=== PATIENT | female | born 1955 | race Caucasian/White ===

== ENCOUNTER 2017-12-05 22:58 | Observation (INO) ==
[2017-12-05] MEDS ORDERED: 0.9 % Sodium Chloride 1,000 ML IVC ONE (23:19)
[2017-12-05] MEDS ORDERED: Aspirin 81 MG TAB.CHEW PO ONE (23:19)
--- NOTE | 2017-12-05 23:38 | Emergency Department Note ---
Disposition Clinical Impression: Chest pain Qualifiers: Chest pain type: unspecified Qualified Code(s): R07.9 - Chest pain, unspecified Disposition: Admitted As Inpatient Condition: Good Forms: ED Satisfaction Letter Time of Disposition: 00:10 Chest Pain HPI - General Chief Complaint: ED Chest Pain Stated Complaint: chest pain Time Seen by Provider: 12/05/17 23:01 Source: patient, EMS Mode of arrival: ambulatory Limitations: no limitations Vital Signs Reviewed: Yes Nursing Notes Reviewed: Yes - History of Present Illness HPI Narrative: 62-year-old female presents to the emergency department complaining of chest pain. She says the chest pain, came on all of a sudden last about 10 minutes he was in the center part of her chest and radiated to both arms. She had no nausea or vomiting. She has had history in the past has had multiple catheterizations but no stents are placed. The last time she was catheterized was about 3-4 years ago which was clean. Patient has not had a fever she has no cough. She denies any long car rides, past blood clots, any leg swelling or pain, recent surgeries or cancer or hormone use. Patient does have history of hypertension and hypercholesterolemia. Patient otherwise has no complaints at this time including no headaches, blurry vision, neck pain, back pain, fevers, nausea, vomiting, shortness of breath, abdominal pain, changes in bowel movement , pain with urination, pain or tingling going down the arms or legs or any generalized weakness. Severity scale (1-10): 0 - Related Data Allergies Allergy/AdvReac Type Severity Reaction Status Date / Time sertraline [From Zoloft] Allergy See Verified 05/02/17 11:57 Comments sumatriptan [From Imitrex] Allergy See Verified 05/02/17 11:57 Comments All systems ED: reviewed and negative except as stated. Review of Systems: As Per HPI Chest Pain PMH - Past Medical History Medical history: Reports: COPD, hypertension, myocardial infarction Psychiatric history: Reports: depression - Social History Smoking Status: Former smoker Alcohol use: Reports: none Drug use: Reports: none Physical Exam - General Limitations: no limitations General appearance: alert, in no apparent distress - Head Head exam: atraumatic, normocephalic, normal inspection - Eye Eye exam: Present: normal appearance, PERRL, EOMI - ENT ENT exam: normal exam, normal oropharynx, mucous membranes moist - Neck Neck exam: Present: normal inspection, full ROM, trachea midline - Chest Chest inspection: Present: normal inspection, symmetric chest wall rise. Absent : tenderness - Respiratory Respiratory exam: Present: normal lung sounds bilaterally - Cardiovascular Cardiovascular exam: Present: regular rate, normal rhythm, normal heart sounds - Abdominal Exam Abdominal exam: Present: soft, Non-Tender, normal bowel sounds. Absent: tenderness, distention, guarding, rebound, rigidity - Extremities Exam Extremities exam: Present: normal inspection, full ROM. Absent: tenderness, pedal edema - Back Exam Back exam: Present: normal inspection, full ROM. Absent: tenderness, CVA tenderness (R), CVA tenderness (L) - Neurological Exam Neurological exam: Present: alert, oriented X3 - Skin Skin exam: Present: warm, dry, intact, normal color Course Course Narrative: We will get basic chest pain workup including CBC, BMP, troponin as well as EKG and chest x-ray. Patient was hypotensive so we will get a lactate as well. We will give patient IV fluids. Patient not having chest pain at this time so will not give him nitroglycerin. We will give her full dose aspirin. Patient disposition most likely his admission for further evaluation. Vital Signs Temperature 98.0 F 12/05/17 23:01 Pulse Rate 72 12/05/17 23:01 Respiratory Rate 18 12/05/17 23:01 Blood Pressure 97/60 12/05/17 23:01 O2 Sat by Pulse Oximetry 96 12/05/17 23:01 Temperature 98.0 F 12/05/17 23:01 Pulse Rate 66 12/05/17 23:33 Respiratory Rate 18 12/05/17 23:33 Blood Pressure 91/61 12/05/17 23:33 O2 Sat by Pulse Oximetry 96 12/05/17 23:33 Oxygen Delivery Oxygen Delivery Room Air Chest Pain - [facility] Narrative Medical decision making narrative: 62-year-old female presents to the emergency department for chest pain. Chest pain is gone at this time we will not give nitroglycerin. Patient also was hypotensive recently she was 80/40 when she got here since getting a liter fluid she is only increased to 95/65. All labs were normal negative troponin chest x-ray was within normal limits EKG had no acute changes. Patient does have an heart score of 4 the patient should be observed overnight. Spoke with the hospitalist Dr. March who agreed to admit the patient to their service. Maria De Jesus molina is okay with this plan. Patient was admitted in stable condition. Chest X-Ray 12/05/17 23:02 IMPRESSION: Negative portable study. D/ / Darlin Paul Cha, MD / Darlin Paul Cha, MD Interpreting Provider: Darlin Paul Cha, MD - Medical Records Medical records reviewed: Yes I reviewed the patient's medical records. - Lab Data Lab results reviewed: Yes I reviewed the patient's lab results. Result diagrams: 12/05/17 23:18 12/05/17 23:18 Lab Results 12/05/17 12/05/17 12/05/17 Range/Units 23:18 23:18 23:18 WBC 11.4 H (4.3-11.1) K/mcL RBC 4.10 (3.82-4.97) M/mcL Hgb 11.5 (11.5-15.4) g/dL Hct 35.6 (35.3-44.9) % MCV 86.8 (83.0-100.0) fL MCH 28.0 (28.0-33.3) pg MCHC 32.3 (31.6-35.5) g/dL RDW 13.9 (11.5-14.5) % Plt Count 239 (140-400) K/mcL MPV 10.7 (9.4-12.4) fL Immature Gran % 0.7 (0-4) % Seg Neutrophils % 48.6 % Lymphocytes % 36.3 % Monocytes % 9.1 % Eosinophils % 4.9 % Basophils % 0.4 % Neutrophils # 5.6 (1.6-8.9) K/mcL Lymphocytes # 4.2 (0.6-4.6) K/mcL Monocytes # 1.0 (0.0-1.3) K/mcL Eosinophils # 0.6 (0.0-0.6) K/mcL Basophils # 0.1 (0.0-0.2) K/mcL PT 11.0 (9.4-12.1) Seconds INR 1.0 APTT 28.6 (26.0-36.0) Seconds Sodium 134 L (136-145) mEq/L Potassium 3.5 (3.5-5.1) mEq/L Chloride 99 (98-107) mEq/L Carbon Dioxide 30 H (23-29) mEq/L BUN 33 H (8-23) mg/dL Creatinine 1.07 (0.60-1.20) mg/dL Est GFR ( Amer) > 60 (> 60) Est GFR (Non-Af Amer) 52 L (> 60) BUN/Creatinine Ratio 31 H (6-26) Glucose 126 H (70-105) mg/dL Calculated Osmolality 287 (280-300) Calcium 9.0 (8.6-10.3) mg/dL Troponin I < 0.03 (< 0.04) ng/mL - Radiology Data Radiology results reviewed: Yes I reviewed the patient's radiology results. - EKG Data EKG attestation: Yes I reviewed and interpreted this EKG. EKG results narrative: EKG done at 2315 review myself and attending shows sinus rhythm at a rate of 66 , TN interval 180, QRS 86, QTC 454 with a normal axis. There is no acute ST changes no acute T-wave changes no other signs of ischemia. No heart block, heart strain, hypertrophy. No WPW/Brugada/HOCM. EKG is unchanged when compared with old one done 05/02/17 Heart Score - Score History: Moderately Suspicious EKG: Normal Age: 45-65 Risk Factors: Equal/Greater than 3 risk factor or history of atherosclerotic disease Troponin: Less than normal limit HEART Score Total: 4
[2017-12-05 23:50] LABS: Activated Partial Thrombo Time 28.6 Seconds (26.0-36.0)
[2017-12-05 23:54] LABS: Basophils # 0.1 K/mcL (0.0-0.2); Basophils % 0.4 %; Eosinophils # 0.6 K/mcL (0.0-0.6); Eosinophils % 4.9 %; Hematocrit 35.6 % (35.3-44.9); Hemoglobin 11.5 g/dL (11.5-15.4); Immature Granulocytes % 0.7 % (0-4); Lymphocytes # 4.2 K/mcL (0.6-4.6); Lymphocytes % 36.3 %; Mean Corpuscular HGB Conc 32.3 g/dL (31.6-35.5); Mean Corpuscular Volume 86.8 fL (83.0-100.0); Mean Platelet Volume 10.7 fL (9.4-12.4); Monocytes % 9.1 %; Neutrophils # 5.6 K/mcL (1.6-8.9); Platelet Count 239 K/mcL (140-400); Red Cell Distribution Width 13.9 % (11.5-14.5); Segmented Neutrophils % 48.6 %
[2017-12-05 23:57] LABS: BUN/Creatinine Ratio 31 (6-26); Blood Urea Nitrogen 33 mg/dL (8-23); Carbon Dioxide 30 mEq/L (23-29); Chloride 99 mEq/L (98-107); Glucose 126 mg/dL (70-105); Osmolality,Calculated 287 (280-300); Potassium 3.5 mEq/L (3.5-5.1); Sodium 134 mEq/L (136-145); eGFR For Non-African Americans 52 (> 60)
[2017-12-05 23:58] LABS: Troponin I < 0.03 ng/mL (< 0.04)
--- NOTE | 2017-12-06 00:10 | Emergency Department Note ---
Disposition Clinical Impression: Unstable angina, Hypotension Disposition: Admitted As Inpatient Condition: Good Forms: ED Satisfaction Letter General Adult HPI - General Chief complaint: ED Chest Pain Stated complaint: chest pain Time Seen by Provider: 12/05/17 23:01 Source: patient, EMS Mode of arrival: ambulatory Limitations: no limitations - History of Present Illness Pain Scale: 0 - Related Data Allergies Allergy/AdvReac Type Severity Reaction Status Date / Time sertraline [From Zoloft] Allergy See Verified 05/02/17 11:57 Comments sumatriptan [From Imitrex] Allergy See Verified 05/02/17 11:57 Comments Past Medical History - Past Medical History Medical history: Reports: COPD, hypertension, myocardial infarction Psychiatric history: Reports: depression - Social History Smoking Status: Former smoker Smokeless Tobacco Status: No Alcohol use: Reports: none Drug use: Reports: none Physical Exam - General Limitations: no limitations General appearance: alert, in no apparent distress Course Vital Signs Temperature 98.0 F 12/05/17 23:01 Pulse Rate 72 12/05/17 23:01 Respiratory Rate 18 12/05/17 23:01 Blood Pressure 97/60 12/05/17 23:01 O2 Sat by Pulse Oximetry 96 12/05/17 23:01 Temperature 98.0 F 12/05/17 23:01 Pulse Rate 66 12/05/17 23:33 Respiratory Rate 18 12/05/17 23:33 Blood Pressure 91/61 12/05/17 23:33 O2 Sat by Pulse Oximetry 96 12/05/17 23:33 Oxygen Delivery Oxygen Delivery Room Air Medical Decision Making - Lab Data Result diagrams: 12/05/17 23:18 12/05/17 23:18 Lab Results 12/05/17 12/05/17 12/05/17 Range/Units 23:18 23:18 23:18 WBC 11.4 H (4.3-11.1) K/mcL RBC 4.10 (3.82-4.97) M/mcL Hgb 11.5 (11.5-15.4) g/dL Hct 35.6 (35.3-44.9) % MCV 86.8 (83.0-100.0) fL MCH 28.0 (28.0-33.3) pg MCHC 32.3 (31.6-35.5) g/dL RDW 13.9 (11.5-14.5) % Plt Count 239 (140-400) K/mcL MPV 10.7 (9.4-12.4) fL Immature Gran % 0.7 (0-4) % Seg Neutrophils % 48.6 % Lymphocytes % 36.3 % Monocytes % 9.1 % Eosinophils % 4.9 % Basophils % 0.4 % Neutrophils # 5.6 (1.6-8.9) K/mcL Lymphocytes # 4.2 (0.6-4.6) K/mcL Monocytes # 1.0 (0.0-1.3) K/mcL Eosinophils # 0.6 (0.0-0.6) K/mcL Basophils # 0.1 (0.0-0.2) K/mcL PT 11.0 (9.4-12.1) Seconds INR 1.0 APTT 28.6 (26.0-36.0) Seconds Sodium 134 L (136-145) mEq/L Potassium 3.5 (3.5-5.1) mEq/L Chloride 99 (98-107) mEq/L Carbon Dioxide 30 H (23-29) mEq/L BUN 33 H (8-23) mg/dL Creatinine 1.07 (0.60-1.20) mg/dL Est GFR ( Amer) > 60 (> 60) Est GFR (Non-Af Amer) 52 L (> 60) BUN/Creatinine Ratio 31 H (6-26) Glucose 126 H (70-105) mg/dL Calculated Osmolality 287 (280-300) Calcium 9.0 (8.6-10.3) mg/dL Troponin I < 0.03 (< 0.04) ng/mL Attestation Statement - Attestation Attestation: I examined this patient and my medical decision-making was reviewed with the Resident Physician. I agree with the documented findings, disposition and treatment plan as described except to the extent set forth below. 62-year-old female in presented to the emergency room for chest pain. Happened just prior to arrival. Lasted 10-15 minutes. Sort of a sharp pain. History of the same in the past and which she was diagnosed with a Prinzmetal's angina. She states she had one of these issues during a heart stress test. She has no history of stents. Said previous heart catheterizations with stents. She does have risk factors. Heart score of 4. We will keep the patient based on her blood pressure being low in the 90s. We gave her liter of fluid with no significant change in her systolic blood pressure. Patient is agreeable to stay for observation based on her blood pressure. She states she normally runs 180s systolic. She looks well this time. She is in no distress. She is chest pain-free.
[2017-12-06] MEDS ORDERED: Acetaminophen 325 MG TABLET PO ONE (00:35)
[2017-12-06] MEDS ORDERED: Naloxone 0.4 MG/ML INJ IVP PRN (00:49)
[2017-12-06] MEDS ORDERED: Nitroglycerin 0.4 MG TAB.SUBL SL PRN (00:53)
[2017-12-06] MEDS ORDERED: 0.9 % Sodium Chloride 1,000 ML IVC SCH (01:00)
--- NOTE | 2017-12-06 02:07 | Internal Med History&Physical ---
Date of Encounter: 12/07/17 Time of Encounter: 02:07 Internal Medicine - H&P: HPI Chief complaint: Chest Pain History of present illness: Ms. Lisa is a 62 year old female with a past medical history of coronary artery disease, myocardial infarction 2 who presents to the emergency room due to sudden onset chest pain. The episode occurred last evening while the patient going to bed. Chest pain described as substernal, burning in quality, radiating to both arms. No aggravating or alleviating factors. Patient reports nausea prior to onset of symptoms and had taken Zofran about 10-15 minutes before symptoms began. No diaphoresis or shortness of breath. Symptoms lasted 10 minutes and resolved on its own. Patient reports a similar episode 2 weeks prior. She does state that she has been having cough with greenish sputum and congestion for the past week and has been taking Augmentin for presumed bronchitis. Patient was noted to be hypotensive with a blood pressure of 80/40. She received 1 L of fluids with a rise in her blood pressure to 95/65. Patient states that she has which she refers to as "heart spasms" which was conveyed to her by her previous [employer] architect. When I asked her if meant coronary artery vessel spasm, she stated the terms sounded unfamiliar to her. Patient continues to smoke 1 cigarette per day and has a significant smoking history in the past of a pack and a half per day for many years. Laboratory findings were remarkable for a mild leukocytosis. Negative troponins. EKG was relatively unremarkable. Chest x-ray was performed which was also unremarkable. Past Med Surg Social Fam HX - Past Medical History Medical history: COPD, hypertension, myocardial infarction, TIA Psychiatric history: anxiety, depression - Past Surgical History Additional surgical history: Partial hysterectomy - Social History Smoking Status: Current every day smoker Smokeless Tobacco Status: No Alcohol use: none Drug use: none - Family History Mother Brother Hx Family Cardiac Disorders: Yes (CHF) Internal Medicine - H&P: Meds Acetaminophen [Tylenol] 325 mg PO Q4HR PRN 12/06/17 [History] Albuterol Sulfate [Proair Hfa] 1 puff IH Q6H PRN 12/06/17 [History] Aspirin [Adult Aspirin Regimen] 81 mg PO DAILY 12/06/17 [History] Atorvastatin [Lipitor] 10 mg PO HS 12/06/17 [History] Budesonide [Rhinocort Allergy] 1 spr NS BID 12/06/17 [History] Calcium Carbonate [Tums] 2 each PO Q4H PRN 12/06/17 [History] Carvedilol [Coreg] 25 mg PO BID 12/06/17 [History] Cetirizine HCl [Zyrtec] 10 mg PO DAILY 12/06/17 [History] Docusate [Colace] 100 mg PO BID 12/06/17 [History] Gabapentin [Neurontin] 600 mg PO QID 12/06/17 [History] Guaifenesin [Mucinex] 600 mg PO BID 12/06/17 [History] Hydrocodone/Acetaminophen [Hydrocodon-Acetaminophn 10-325] 1 tab PO QID PRN [History] Ipratropium/Albuterol Neb [Duoneb] 3 ml IH Q6HR PRN 12/06/17 [History] Lisinopril/Hydrochlorothiazide [Zestoretic 20-25 mg Tablet] 1 each PO DAILY [History] Melatonin [Melatin] 3 mg PO HS 12/06/17 [History] Mupirocin Calcium [Bactroban Nasal] 1 each IN TID PRN 12/06/17 [History] Nystatin POWDER [Nystop] 1 each TD DAILY PRN 12/06/17 [History] Ondansetron HCl 4 mg PO QID PRN 12/06/17 [History] Paroxetine HCl [Paxil] 40 mg PO DAILY 12/06/17 [History] Pectin [Throat Drops] 2.8 mg MM Q2-4H PRN 12/06/17 [History] Polyethylene Glycol 3350 [MiraLAX] 1 each PO DAILY PRN 12/06/17 [History] Ranitidine HCl [Zantac 75] 75 mg PO HS 12/06/17 [History] Saline Nasal [place] [[place] Nasal [place]] 1 each IN PRN PRN 12/06/17 [History] Tizanidine HCl [Zanaflex] 4 mg PO HS 12/06/17 [History] Varenicline Tartrate [Chantix] 1 mg PO BID 12/06/17 [History] clonazePAM [Clonazepam] 0.5 mg PO TID 12/06/17 [History] Amoxicillin/Clavulanate [Augmentin] 875 mg PO BIDWM tablet 12/07/17 [Rx] predniSONE [PredniSONE] 40 mg PO DAILY tablet 12/07/17 [Rx] 3 Allergy/AdvReac Type Severity Reaction Status Date / Time sertraline [From Zoloft] Allergy See Verified 05/02/17 11:57 Comments sumatriptan [From Imitrex] Allergy See Verified 05/02/17 11:57 Comments All Systems PM: A 10-system review of systems was performed and is negative for pertinent findings except as documented above in the HPI. - Constitutional Constitutional: no chills, no fever(s), no night sweats - EENT Eyes: no change in vision, no discharge, no pain, no photophobia Ears: no ear discharge, no ear pain, no tinnitus Nose, mouth and throat: no dysphagia, no nasal discharge, no neck pain, no sore throat - Cardiovascular Cardiovascular ROS IM: no chest pain, no diaphoresis, no dyspnea, no lightheadedness, no palpitations, no syncope - Respiratory Respiratory: no cough, no dyspnea, no wheezing, no excessive phlegm production - Gastrointestinal Gastrointestinal: no abdominal pain, no diarrhea, no hematemesis, no hematochezia, no melena, no nausea, no vomiting - Genitourinary Genitourinary: no change in urinary stream, no dysuria, no flank pain, no hematuria - Musculoskeletal Musculoskeletal ROS IM: no numbness, no tingling - Integumentary Integumentary IM: no rash, no unusual bruising - Neurological Neurological ROS: no confusion, no convulsions, no focal weakness, no numbness, no tingling, no tremor(s) - Hematologic/Lymphatic Hematologic/Lymphatic: no easy bruising - Constitutional Vitals: Temp Pulse Resp BP Pulse Ox 97.8 F 72 16 99/66 95 12/06/17 01:15 12/06/17 01:15 12/06/17 01:15 12/06/17 01:15 12/06/17 01:15 Exam: General: Alert and oriented 3; lying in bed no acute distress Skin:Normal color, no rash, no lesions. HEENT:EOM, pupils equal, round and reactive. Cardiovascular:Normal S1 & S2, no rubs, murmurs or gallops. No JVD. Pulse regular. Lungs:Normal breath sounds, no wheezes or crackles. Abdomen:Soft, non-tender, no rigidity. Extremities:No deformity, no edema or tenderness, no joint swelling or clubbing. Neurological:Normal cognition and motor skills. Pulses:Carotid and radial pulses normal +2. Rest of the physical exam is non contributory Internal Med - H&P Results - Labs CBC & Chem 7: 12/06/17 05:24 12/06/17 05:24 - Assessment and plan (1) Chest pain Status: Acute Assessment and plan: Atypical chest pain in the setting of previous history of TX with negative troponins and normal EKG. Low suspicion for acute coronary syndrome however given patient's prior history we will need to rule out ACS. Unclear if this may be a presentation of Prinzmetal angina given patient's report of history of "heart spasm". She also reports 1 week history of acute bronchitis currently being treated on Augmentin . Patient received loading dose of aspirin. Patient asymptomatic currently. Blood pressure stable. Continue telemetry. Trend troponins We will reassess need for sublingual nitroglycerin if chest pain recurs. No beta blockers for now in the setting of hypotension. Nuclear stress test in the morning. Consider cardiology consult. Qualifiers: Chest pain type: unspecified Qualified Code(s): R07.9 - Chest pain, unspecified (2) Hypotension Status: Resolved Assessment and plan: Fluid responsive hypotension of unclear etiology. Possibly secondary to mild sepsis in the setting of the upper respiratory tract infection versus cardiogenic etiology. We will continue maintenance fluids for now. Hold Carvidilol. Monitor blood pressure Qualifiers: Hypotension type: unspecified hypotension type Qualified Code(s): I95.9 - Hypotension, unspecified (3) Acute bronchitis Status: Acute Assessment and plan: Patient reports cough productive of greenish sputum for the past week. She is currently receiving Augmentin for presumed acute bronchitis. We will continue current medications. Qualifiers: Bronchitis organism: unspecified organism Qualified Code(s): J20.9 - Acute bronchitis, unspecified - Time Spent With Patient Total time spent is greater than 50% in coordination of care (as documented) at patient's floor/unit and/or counseling patient:
[2017-12-06] MEDS ORDERED: Acetaminophen 325 MG TABLET PO PRN (04:15)
[2017-12-06] MEDS ORDERED: Ondansetron Oral Soln 2 MG/2.5 ML ORAL.SYG PO PRN (04:34)
[2017-12-06] MEDS ORDERED: Regadenoson 0.4 MG/5 ML SYRINGE IVP ONE (06:07)
[2017-12-06 06:21] LABS: Basophils % 0.3 %; Eosinophils # 0.5 K/mcL (0.0-0.6); Eosinophils % 5.2 %; Hematocrit 36.4 % (35.3-44.9); Hemoglobin 11.4 g/dL (11.5-15.4); Immature Granulocytes % 0.6 % (0-4); Lymphocytes # 3.9 K/mcL (0.6-4.6); Mean Corpuscular HGB Conc 31.3 g/dL (31.6-35.5); Mean Corpuscular Hemoglobin 27.7 pg (28.0-33.3); Mean Corpuscular Volume 88.6 fL (83.0-100.0); Mean Platelet Volume 10.8 fL (9.4-12.4); Monocytes % 10.6 %; Neutrophils # 3.8 K/mcL (1.6-8.9); Platelet Count 223 K/mcL (140-400); Red Blood Count 4.11 M/mcL (3.82-4.97); Red Cell Distribution Width 13.8 % (11.5-14.5); Segmented Neutrophils % 41.3 %
[2017-12-06 06:43] LABS: Alanine Aminotransferase 10 Units/L (7-52); Albumin 3.1 g/dL (3.5-5.7); Albumin/Globulin Ratio 1.4 (1.1-2.2); Alkaline Phosphatase 66 Units/L (34-104); Aspartate Amino Transferase 13 Units/L (13-39); BUN/Creatinine Ratio 36 (6-26); Bilirubin,Total 0.4 mg/dL (0.3-1.0); Blood Urea Nitrogen 31 mg/dL (8-23); Calcium 8.4 mg/dL (8.6-10.3); Carbon Dioxide 29 mEq/L (23-29); Chloride 104 mEq/L (98-107); Chol/HDL Ratio 6.6 (0-4.9); Cholesterol 185 mg/dL (< 200); Globulin 2.2 g/dL (2.4-3.5); Glucose 99 mg/dL (70-105); HDL Cholesterol 28 mg/dL (40-59); LDL Cholesterol,Calculated 99 mg/dL (0-99); Magnesium 2.1 mg/dL (1.6-2.6); Osmolality,Calculated 287 (280-300); Potassium 3.9 mEq/L (3.5-5.1); Sodium 135 mEq/L (136-145); Total Protein 5.3 g/dL (6.4-8.9); Triglycerides 290 mg/dL (< 150); eGFR For Non-African Americans > 60 (> 60)
[2017-12-06] MEDS ORDERED: 0.9 % Sodium Chloride 500 ML IVC PRN (07:45)
[2017-12-06] MEDS: Ipratropium/Albuterol Neb 3 ML IH SCH ×3 (10:55→22:18)
[2017-12-06] MEDS: Gabapentin 300 MG CAPSULE PO SCH ×4 (11:06→19:50)
[2017-12-06] MEDS: Loratadine 10 MG TABLET PO SCH (12:07)
[2017-12-06] MEDS: Aspirin Enteric Coated 81 MG Tablet PO SCH (12:07)
[2017-12-06] MEDS: Fluticasone Propionate Nasal 50 MCG/SPRAY BOTTLE NS SCH (12:08)
[2017-12-06] MEDS: *HR* HYDROcodone/Acet 10/325 mg TABLET PO PRN ×2 (14:10→19:50)
[2017-12-06] MEDS ORDERED: clonazePAM 0.5 MG TABLET PO PRN (14:34)
[2017-12-06] MEDS ORDERED: Albuterol 2.5 MG/3 ML NEBULIZER IH PRN (14:49)
--- NOTE | 2017-12-06 15:00 | Event Note ---
Date of Encounter: 12/06/17 Time of Encounter: 14:30 H&P reviewed. 62-year-old female with history of CAD and prior CT, COPD, is admitted for sudden onset of chest pain. She was also hypotensive on presentation, she is otherwise usually on 3 antihypertensive medications at home. Diffuse wheezing on exam on both lung mera. Medications were held and she was given IV fluid. Underwent stress test this AM which was negative. Has been treated with PO Augmentin as an outpatient which will be continued but will also add on IV solumedrol with an aim to switch to PO PRednisone tomorrow and discharge if BP remains stable.
[2017-12-06] MEDS: MethylPREDNISolone 40 MG/ML VIAL IVP SCH (17:45)
[2017-12-07] MEDS: Ipratropium/Albuterol Neb 3 ML IH SCH ×2 (03:49→11:16)
[2017-12-07] MEDS: MethylPREDNISolone 40 MG/ML VIAL IVP SCH (06:39)
[2017-12-07] MEDS ORDERED: predniSONE 20 MG TABLET PO SCH (09:00)
[2017-12-07] MEDS: Fluticasone Propionate Nasal 50 MCG/SPRAY BOTTLE NS SCH (10:56)
[2017-12-07] MEDS: *HR* HYDROcodone/Acet 10/325 mg TABLET PO PRN (11:02)
[2017-12-07] MEDS: Aspirin Enteric Coated 81 MG Tablet PO SCH (11:02)
[2017-12-07] MEDS: Loratadine 10 MG TABLET PO SCH (11:02)
[2017-12-07] MEDS: Gabapentin 300 MG CAPSULE PO SCH (11:02)
--- NOTE | 2017-12-07 11:06 | Physician Discharge Referral ---
ExtendedCare Referral Info Transfer To: Signature Provider in Charge after Transfer: PCP Institutional Level of Care: Skilled - Diagnosis (1) Acute bronchitis Priority: Primary Status: Acute (2) Chest pain Priority: Primary Status: Acute (3) Hypotension Priority: Primary Status: Resolved Prognosis: Fair Aware of Diagnosis: Patient Aware of Prognosis: Patient - Transfer Medications Home Medications: Acetaminophen [Tylenol] 325 mg PO Q4HR PRN 12/06/17 [History] Albuterol Sulfate [Proair Hfa] 1 puff IH Q6H PRN 12/06/17 [History] Aspirin [Adult Aspirin Regimen] 81 mg PO DAILY 12/06/17 [History] Atorvastatin [Lipitor] 10 mg PO HS 12/06/17 [History] Budesonide [Rhinocort Allergy] 1 spr NS BID 12/06/17 [History] Calcium Carbonate [Tums] 2 each PO Q4H PRN 12/06/17 [History] Carvedilol [Coreg] 25 mg PO BID 12/06/17 [History] Cetirizine HCl [Zyrtec] 10 mg PO DAILY 12/06/17 [History] Docusate [Colace] 100 mg PO BID 12/06/17 [History] Gabapentin [Neurontin] 600 mg PO QID 12/06/17 [History] Guaifenesin [Mucinex] 600 mg PO BID 12/06/17 [History] Hydrocodone/Acetaminophen [Hydrocodon-Acetaminophn 10-325] 1 tab PO QID PRN [History] Ipratropium/Albuterol Neb [Duoneb] 3 ml IH Q6HR PRN 12/06/17 [History] Lisinopril/Hydrochlorothiazide [Zestoretic 20-25 mg Tablet] 1 each PO DAILY [History] Melatonin [Melatin] 3 mg PO HS 12/06/17 [History] Mupirocin Calcium [Bactroban Nasal] 1 each IN TID PRN 12/06/17 [History] Nystatin POWDER [Nystop] 1 each TD DAILY PRN 12/06/17 [History] Ondansetron HCl 4 mg PO QID PRN 12/06/17 [History] Paroxetine HCl [Paxil] 40 mg PO DAILY 12/06/17 [History] Pectin [Throat Drops] 2.8 mg MM Q2-4H PRN 12/06/17 [History] Polyethylene Glycol 3350 [MiraLAX] 1 each PO DAILY PRN 12/06/17 [History] Ranitidine HCl [Zantac 75] 75 mg PO HS 12/06/17 [History] Saline Nasal [place] [[place] Nasal [place]] 1 each IN PRN PRN 12/06/17 [History] Tizanidine HCl [Zanaflex] 4 mg PO HS 12/06/17 [History] Varenicline Tartrate [Chantix] 1 mg PO BID 12/06/17 [History] clonazePAM [Clonazepam] 0.5 mg PO TID 12/06/17 [History] predniSONE [PredniSONE] 40 mg PO DAILY tablet 12/07/17 [Rx] Allergies/Adverse Reactions: 3 Allergy/AdvReac Type Severity Reaction Status Date / Time sertraline [From Zoloft] Allergy See Verified 05/02/17 11:57 Comments sumatriptan [From Imitrex] Allergy See Verified 05/02/17 11:57 Comments - Respiratory Orders Smoking Cessation: Smoking cessation has been advised. For more information, call the [place] Tobacco Quit Line at 4-705-NZGV-NOW. - Advance Directives Code Status: Full Code - Mobility Orders Ambulate CERTIFICATION: I certify that the transfer of the above named patient to an Extended Care Facility is necessary for the continuing treatment of the diagnosis listed. The above information is true and accurate reflection of patient's current condition. Confidential - Redisclosure prohibited without a patient's written consent.
--- NOTE | 2017-12-07 11:11 | Discharge Summary ---
- NOTES TO OUTPATIENT PROVIDER Notes to Outpatient Provider: Follow up with PCP per protocol of SNF. Admitted to observation for low blood pressure and bronchitis, asssociated with chest pain.Work up negative, blood pressure improved promptly with fluids , discharged back to SNF on home meds, with augmentin and prednisone for bronchitis Orders not resulted at time of discharge: Pending orders 12/06/17 06:00 ECG 12 lead ECG [ECG] AM 0600 12/06/17 06:33 NM jessica perf SPECT multi [NM] Routine Date of Encounter: 12/07/17 Time of Encounter: 11:09 - Discharge Diagnosis (1) Acute bronchitis Priority: Primary Status: Acute Qualifiers: Bronchitis organism: unspecified organism Qualified Code(s): J20.9 - Acute bronchitis, unspecified (2) Chest pain Priority: Primary Status: Acute Qualifiers: Chest pain type: unspecified Qualified Code(s): R07.9 - Chest pain, unspecified (3) Hypotension Priority: Primary Status: Resolved Qualifiers: Hypotension type: unspecified hypotension type Qualified Code(s): I95.9 - Hypotension, unspecified Hospital course: Ms. Lisa is a 62 year old female with history of CAD and prior OR is admitted for sudden onset of chest pain, as well as low blood pressure. Patient presented to [facility] ER with complains of sudden onset chest pain, which resolved spontaneously prior to arrival, associated with nausea, no vomiting, no diaphoresis or shortness of breath. Symptoms lasted 10 minutes and resolved on its own. Patient reports a similar episode 2 weeks prior. She does state that she has been having cough with greenish sputum and congestion for the past week and has been taking Augmentin for presumed bronchitis. Patient continues to smoke 1 cigarette per day and has a significant smoking history in the past of a pack and a half per day for many years. Laboratory findings were remarkable for a mild leukocytosis. Negative troponins. EKG was relatively unremarkable. Chest x-ray was performed which was also unremarkable. EKG, troponin, Stress test was done and is negative. She was also hypotensive, she is usually on 3 anti-HTN meds at home. Med on hold, given IVF, and started to improve from the afternoon. Was being treated for bronchitis so is being continued on Augmentin. She was seen and evaluated this a.m, blood pressure is now high, off fluids and medications have beenr esumed Patient reports she is asymptomatic and will like to return to SNF She is on multiple controlled substances, we have not changed the doses of same , continue per primary provider at [facility] Patient is hemodynamically and clinically stable to be discharged to SNF Tobacco cessation counselling done Discharge discussed with: patient, nurse, case management Time spent discussing smoking cessation with patient: 3 to 10 minutes - Time Spent with Patient Total time spent providing and/or coordinating discharge services: Less than 30 minutes - Discharge Medications Home Medications: Acetaminophen [Tylenol] 325 mg PO Q4HR PRN 12/06/17 [History] Albuterol Sulfate [Proair Hfa] 1 puff IH Q6H PRN 12/06/17 [History] Aspirin [Adult Aspirin Regimen] 81 mg PO DAILY 12/06/17 [History] Atorvastatin [Lipitor] 10 mg PO HS 12/06/17 [History] Budesonide [Rhinocort Allergy] 1 spr NS BID 12/06/17 [History] Calcium Carbonate [Tums] 2 each PO Q4H PRN 12/06/17 [History] Carvedilol [Coreg] 25 mg PO BID 12/06/17 [History] Cetirizine HCl [Zyrtec] 10 mg PO DAILY 12/06/17 [History] Docusate [Colace] 100 mg PO BID 12/06/17 [History] Gabapentin [Neurontin] 600 mg PO QID 12/06/17 [History] Guaifenesin [Mucinex] 600 mg PO BID 12/06/17 [History] Hydrocodone/Acetaminophen [Hydrocodon-Acetaminophn 10-325] 1 tab PO QID PRN [History] Ipratropium/Albuterol Neb [Duoneb] 3 ml IH Q6HR PRN 12/06/17 [History] Lisinopril/Hydrochlorothiazide [Zestoretic 20-25 mg Tablet] 1 each PO DAILY [History] Melatonin [Melatin] 3 mg PO HS 12/06/17 [History] Mupirocin Calcium [Bactroban Nasal] 1 each IN TID PRN 12/06/17 [History] Nystatin POWDER [Nystop] 1 each TD DAILY PRN 12/06/17 [History] Ondansetron HCl 4 mg PO QID PRN 12/06/17 [History] Paroxetine HCl [Paxil] 40 mg PO DAILY 12/06/17 [History] Pectin [Throat Drops] 2.8 mg MM Q2-4H PRN 12/06/17 [History] Polyethylene Glycol 3350 [MiraLAX] 1 each PO DAILY PRN 12/06/17 [History] Ranitidine HCl [Zantac 75] 75 mg PO HS 12/06/17 [History] Saline Nasal [place] [[place] Nasal [place]] 1 each IN PRN PRN 12/06/17 [History] Tizanidine HCl [Zanaflex] 4 mg PO HS 12/06/17 [History] Varenicline Tartrate [Chantix] 1 mg PO BID 12/06/17 [History] clonazePAM [Clonazepam] 0.5 mg PO TID 12/06/17 [History] Amoxicillin/Clavulanate [Augmentin] 875 mg PO BIDWM tablet 12/07/17 [Rx] predniSONE [PredniSONE] 40 mg PO DAILY tablet 12/07/17 [Rx] Allergies/Adverse Reactions: 3 Allergy/AdvReac Type Severity Reaction Status Date / Time sertraline [From Zoloft] Allergy See Verified 05/02/17 11:57 Comments sumatriptan [From Imitrex] Allergy See Verified 05/02/17 11:57 Comments Date of admission: 12/06/17 00:31 Primary care physician: PCP NONE Consults: 12/06/17 01:11 Consult to [facility] [CONS] Routine Reason for SW Consult: Patient from [facility] for rehab; slated to leave Sunday to return home per patient. Discharging clinician: Irving Boyer Anticipated date of discharge: 12/07/17 - Constitutional Vitals: Temp Pulse Resp BP Pulse Ox 97.8 F 88 18 151/84 93 12/07/17 07:24 12/07/17 07:24 12/07/17 07:24 12/07/17 07:24 12/07/17 07:24 General appearance: Present: A&O X 3, pleasant Exam: See exam - Head Head exam: Present: atraumatic, normocephalic - Eye Eye exam: Present: PERRL, conjuntiva pink, sclera anicteric Pupils: Present: PERRL - Neck Neck exam general surgery: Present: supple, trachea midline. Absent: lymphadenopathy - Respiratory Respiratory exam: Present: CTAB. Absent: accessory muscle use, rales, rhonchi, wheezes - Cardiovascular Cardiovascular exam: Present: RRR, +S1, +S2. Absent: diastolic murmur, gallop, rubs, systolic murmur - GI/Abdominal GI/Abdominal exam: Present: normal bowel sounds, soft, no peritoneal signs. Absent: distended, tenderness - Extremities Exam Extremities exam: Present: warm, radial pulses palpable and symmetrical. Absent : calf tenderness, cyanotic, pedal edema - Neurological Exam Neurological exam: Present: CN II-XII intact, oriented X3, no focal deficits. Absent: pronater drift, facial droop, speech deficit - Skin Skin exam: Present: dry, intact - Patient Status Disposition: Transfer SNF Condition: Good Functional capacity at discharge: independent ambulation Overall status at discharge: patient is progressing back to baseline - Discharge Instructions Follow Up With: NONE,PCP [Primary Care Provider] - - Diet and Activity Activity: resume usual activities as tolerated Diet: low fat, low cholesterol, low salt diet
[2017-12-07 11:25] VITALS: BP 161/100
--- NOTE | 2017-12-09 20:54 | Electrocardiograph Report ---
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
== END 2017-12-07 13:15 ==
LOC: EMEROOARM 22:58 → 2ANU 22:58 → SUATTDRO 12-06 00:31 → 2ANU 12-06 00:49
PROVIDERS: ADMIT Internal Medicine; ATTEND Internal Medicine

== ENCOUNTER 2021-04-21 23:33 | Inpatient (IN) ==
[2021-04-21] MEDS ORDERED: Isovue-370 500 ML BOTTLE IVP ONE (23:41)
[2021-04-22 00:27] LABS: Basophils % 0.2 %; Eosinophils # 0.1 K/mcL (0.0-0.6); Eosinophils % 0.3 %; Hematocrit 38.3 % (35.3-44.9); Immature Granulocytes % 0.5 % (0-4); Lymphocytes # 1.7 K/mcL (0.6-4.6); Lymphocytes % 8.4 %; Mean Corpuscular HGB Conc 31.3 g/dL (31.6-35.5); Mean Corpuscular Hemoglobin 26.4 pg (28.0-33.3); Mean Corpuscular Volume 84.2 fL (83.0-100.0); Mean Platelet Volume 11.2 fL (9.4-12.4); Monocytes # 1.9 K/mcL (0.0-1.3); Monocytes % 9.2 %; Neutrophils # 16.8 K/mcL (1.6-8.9); Nucleated Red Blood Cells 0.1 /100 WBC (0); Platelet Count 372 K/mcL (140-400); Red Blood Count 4.55 M/mcL (3.82-4.97); Red Cell Distribution Width 15.6 % (11.5-14.5); Segmented Neutrophils % 81.4 %; White Blood Count 20.6 K/mcL (4.3-11.1)
[2021-04-22 00:48] LABS: BUN/Creatinine Ratio 26 (6-26); Blood Urea Nitrogen 19 mg/dL (8-23); Calcium 9.3 mg/dL (8.6-10.3); Carbon Dioxide 31 mEq/L (23-29); Chloride 97 mEq/L (98-107); Glucose 141 mg/dL (70-105); Osmolality,Calculated 287 (280-300); Potassium 3.5 mEq/L (3.5-5.1); Sodium 136 mEq/L (136-145); eGFR For African Americans > 60 (> 60); eGFR For Non-African Americans > 60 (> 60)
[2021-04-22 00:52] LABS: Troponin I 0.04 ng/mL (< 0.04)
[2021-04-22] MEDS ORDERED: Azithromycin 500 MG in 0.9 % Sodium Chloride 250 ML IVPB ONE (01:28)
[2021-04-22] MEDS ORDERED: cefTRIAXone 2,000 MG in Water for inj. (sterile) 20 ML IVP ONE (01:28)
[2021-04-22] MEDS ORDERED: Naloxone 0.4 MG/ML INJ IVP PRN (03:05)
[2021-04-22] MEDS ORDERED: Melatonin 3 MG TABLET PO PRN (03:05)
[2021-04-22 03:30] LABS: Influenza A PCR Negative (Negative); Influenza B PCR Negative (Negative); Resp. Syncytial Virus PCR Negative (Negative)
[2021-04-22 03:50] LABS: SARS-CoV-2 by PCR (In House) Negative (Negative)
[2021-04-22] MEDS ORDERED: Dextrose Gel 15 GM/37.5 ML TUBE PO PRN ×2 (04:01)
[2021-04-22] MEDS ORDERED: *HR* Dextrose 50 % in Water (Syg) 50 ML SYRINGE IVP PRN (04:01)
[2021-04-22] MEDS ORDERED: D5% in Water 1,000 ML IVC PRN (04:01)
[2021-04-22] MEDS: Nicotine 21 MG PATCH.TD24 TD SCH (05:35)
[2021-04-22] MEDS: MethylPREDNISolone 40 MG/ML VIAL IVP SCH ×3 (05:35→17:55)
[2021-04-22] MEDS: *HR* Heparin 5,000 UNIT/ML VIAL SQ SCH ×2 (05:36→17:55)
[2021-04-22 06:07] LABS: Hematocrit 38.4 % (35.3-44.9); Hemoglobin 11.9 g/dL (11.5-15.4); Mean Corpuscular Hemoglobin 26.2 pg (28.0-33.3); Mean Corpuscular Volume 84.6 fL (83.0-100.0); Mean Platelet Volume 10.9 fL (9.4-12.4); Platelet Count 384 K/mcL (140-400); Red Blood Count 4.54 M/mcL (3.82-4.97); Red Cell Distribution Width 15.8 % (11.5-14.5); White Blood Count 21.9 K/mcL (4.3-11.1)
[2021-04-22 06:25] LABS: BUN/Creatinine Ratio 23 (6-26); Blood Urea Nitrogen 17 mg/dL (8-23); Calcium 9.6 mg/dL (8.6-10.3); Carbon Dioxide 32 mEq/L (23-29); Chloride 97 mEq/L (98-107); Glucose 146 mg/dL (70-105); Osmolality,Calculated 284 (280-300); Phosphorous 3.7 mg/dL (2.7-4.5); Potassium 3.9 mEq/L (3.5-5.1); Sodium 135 mEq/L (136-145); eGFR For African Americans > 60 (> 60); eGFR For Non-African Americans > 60 (> 60)
[2021-04-22] MEDS: *HR* LORazepam 0.5 MG TABLET PO PRN (06:29)
[2021-04-22 06:35] LABS: Troponin I 0.05 ng/mL (< 0.04)
[2021-04-22] MEDS: Insulin LISPRO 300 UNITS/3 ML VIAL SUBQ SCH ×4 (07:05→20:08)
[2021-04-22] MEDS: Budesonide/Formoterol 160/4.5 1 PUFF INH IH SCH ×2 (08:36→19:44)
[2021-04-22] MEDS ORDERED: FLUoxetine 20 MG CAPSULE PO SCH (09:00)
[2021-04-22 09:03] LABS: ABG Base Excess 4 mEq/L (-2 to 3); ABG HCO3 32 mEq/L (21-27); ABG Oxygen Saturation 98 % (95-98); ABG PCO2 62 mmHg (35-45); ABG PH 7.32 pH Units (7.32-7.45); ABG PO2 120 mmHg (85-104); ABG TCO2 34 mEq/L (20-26); Blood Gas Modality BiLevel
[2021-04-22] MEDS: carvediloL 25 MG TABLET PO SCH ×2 (09:48→17:56)
[2021-04-22] MEDS: cloNIDine HCL 0.1 MG TABLET PO SCH ×2 (09:48→19:57)
[2021-04-22] MEDS ORDERED: Ipratropium/Albuterol Neb 3 ML IH SCH (10:00)
[2021-04-22] MEDS ORDERED: Ondansetron ODT 4 MG TAB.RAPDIS SL PRN (13:53)
[2021-04-22] MEDS: Ipratropium/Albuterol Neb 3 ML IH SCH ×2 (16:12→19:44)
[2021-04-22] MEDS: Gabapentin 300 MG CAPSULE PO SCH (19:56)
[2021-04-22] MEDS: Carbidopa/Levodopa 25/100 TABLET PO SCH (19:57)
[2021-04-22] MEDS: Gabapentin 100 MG CAPSULE PO SCH (19:57)
[2021-04-23] MEDS: Ipratropium/Albuterol Neb 3 ML IH SCH ×6 (00:04→20:13)
[2021-04-23 02:41] LABS: Basophils % 0.2 %; Hematocrit 37.3 % (35.3-44.9); Hemoglobin 11.3 g/dL (11.5-15.4); Immature Granulocytes % 0.9 % (0-4); Lymphocytes # 1.4 K/mcL (0.6-4.6); Lymphocytes % 8.2 %; Mean Corpuscular HGB Conc 30.3 g/dL (31.6-35.5); Mean Corpuscular Hemoglobin 25.8 pg (28.0-33.3); Mean Corpuscular Volume 85.2 fL (83.0-100.0); Monocytes # 0.5 K/mcL (0.0-1.3); Monocytes % 2.8 %; Neutrophils # 14.5 K/mcL (1.6-8.9); Platelet Count 368 K/mcL (140-400); Red Blood Count 4.38 M/mcL (3.82-4.97); Red Cell Distribution Width 15.6 % (11.5-14.5); Segmented Neutrophils % 87.9 %; White Blood Count 16.5 K/mcL (4.3-11.1)
[2021-04-23 02:49] LABS: BUN/Creatinine Ratio 33 (6-26); Blood Urea Nitrogen 23 mg/dL (8-23); Calcium 9.4 mg/dL (8.6-10.3); Carbon Dioxide 32 mEq/L (23-29); Chloride 99 mEq/L (98-107); Glucose 139 mg/dL (70-105); Osmolality,Calculated 290 (280-300); Potassium 4.1 mEq/L (3.5-5.1); Sodium 137 mEq/L (136-145); eGFR For African Americans > 60 (> 60); eGFR For Non-African Americans > 60 (> 60)
[2021-04-23] MEDS: MethylPREDNISolone 40 MG/ML VIAL IVP SCH ×3 (04:11→17:34)
[2021-04-23] MEDS: Nicotine 21 MG PATCH.TD24 TD SCH (04:17)
[2021-04-23] MEDS: *HR* Heparin 5,000 UNIT/ML VIAL SQ SCH ×2 (06:00→17:34)
[2021-04-23] MEDS: Budesonide/Formoterol 160/4.5 1 PUFF INH IH SCH ×2 (07:40→20:13)
[2021-04-23] MEDS: Insulin LISPRO 300 UNITS/3 ML VIAL SUBQ SCH ×4 (07:49→21:33)
[2021-04-23] MEDS: PARoxetine 20 MG TABLET PO SCH (08:16)
[2021-04-23] MEDS: Lisinopril-HCTZ 20-12.5mg TABLET PO SCH (08:16)
[2021-04-23] MEDS: carvediloL 25 MG TABLET PO SCH ×2 (08:17→17:33)
[2021-04-23] MEDS: Gabapentin 300 MG CAPSULE PO SCH ×2 (08:17→20:23)
[2021-04-23] MEDS: cloNIDine HCL 0.1 MG TABLET PO SCH ×2 (08:17→20:23)
[2021-04-23] MEDS: Carbidopa/Levodopa 25/100 TABLET PO SCH ×3 (08:17→21:44)
[2021-04-23] MEDS: Gabapentin 100 MG CAPSULE PO SCH ×2 (08:17→20:23)
[2021-04-23] MEDS: Aspirin Enteric Coated 81 MG Tablet PO SCH (08:17)
[2021-04-23] MEDS: Furosemide 20 MG TABLET PO SCH (08:17)
[2021-04-23] MEDS: Azithromycin 500 MG in 0.9 % Sodium Chloride 250 ML IVPB SCH (17:34)
[2021-04-23] MEDS: cefTRIAXone 1,000 MG in 0.9 % Sodium Chloride Mini Bag 100 ML IVPB SCH (17:34)
[2021-04-23] MEDS: *HR* HYDROcodone/Acet 5/325 mg TABLET PO PRN (20:22)
[2021-04-24] MEDS: Ipratropium/Albuterol Neb 3 ML IH SCH ×7 (00:08→23:26)
[2021-04-24] MEDS: MethylPREDNISolone 40 MG/ML VIAL IVP SCH ×3 (03:15→22:15)
[2021-04-24 06:55] LABS: Basophils # 0.1 K/mcL (0.0-0.2); Basophils % 0.3 %; Hematocrit 40.1 % (35.3-44.9); Hemoglobin 12.2 g/dL (11.5-15.4); Immature Granulocytes % 1.5 % (0-4); Lymphocytes # 1.2 K/mcL (0.6-4.6); Lymphocytes % 5.8 %; Mean Corpuscular HGB Conc 30.4 g/dL (31.6-35.5); Mean Corpuscular Hemoglobin 25.5 pg (28.0-33.3); Mean Corpuscular Volume 83.9 fL (83.0-100.0); Mean Platelet Volume 11.1 fL (9.4-12.4); Monocytes # 0.7 K/mcL (0.0-1.3); Monocytes % 3.1 %; Neutrophils # 18.9 K/mcL (1.6-8.9); Nucleated Red Blood Cells 0.1 /100 WBC (0); Platelet Count 424 K/mcL (140-400); Red Blood Count 4.78 M/mcL (3.82-4.97); Red Cell Distribution Width 15.4 % (11.5-14.5); Segmented Neutrophils % 89.3 %; White Blood Count 21.1 K/mcL (4.3-11.1)
[2021-04-24] MEDS: *HR* Heparin 5,000 UNIT/ML VIAL SQ SCH ×2 (07:08→16:24)
[2021-04-24] MEDS: Nicotine 21 MG PATCH.TD24 TD SCH (07:08)
[2021-04-24 07:13] LABS: BUN/Creatinine Ratio 35 (6-26); Blood Urea Nitrogen 29 mg/dL (8-23); Calcium 9.4 mg/dL (8.6-10.3); Carbon Dioxide 35 mEq/L (23-29); Chloride 97 mEq/L (98-107); Glucose 157 mg/dL (70-105); Osmolality,Calculated 293 (280-300); Sodium 137 mEq/L (136-145); eGFR For African Americans > 60 (> 60); eGFR For Non-African Americans > 60 (> 60)
[2021-04-24] MEDS: Budesonide/Formoterol 160/4.5 1 PUFF INH IH SCH ×2 (07:52→19:49)
[2021-04-24] MEDS: carvediloL 25 MG TABLET PO SCH ×2 (08:34→16:23)
[2021-04-24] MEDS: Lisinopril-HCTZ 20-12.5mg TABLET PO SCH (08:34)
[2021-04-24] MEDS: Gabapentin 300 MG CAPSULE PO SCH ×2 (08:34→22:17)
[2021-04-24] MEDS: Gabapentin 100 MG CAPSULE PO SCH ×2 (08:34→22:17)
[2021-04-24] MEDS: cloNIDine HCL 0.1 MG TABLET PO SCH ×2 (08:35→22:18)
[2021-04-24] MEDS: Furosemide 20 MG TABLET PO SCH (08:35)
[2021-04-24] MEDS: PARoxetine 20 MG TABLET PO SCH (08:35)
[2021-04-24] MEDS: Aspirin Enteric Coated 81 MG Tablet PO SCH (08:35)
[2021-04-24] MEDS: Carbidopa/Levodopa 25/100 TABLET PO SCH ×3 (08:35→21:45)
[2021-04-24] MEDS: *HR* HYDROcodone/Acet 5/325 mg TABLET PO PRN ×2 (08:45→16:36)
[2021-04-24] MEDS: Insulin LISPRO 300 UNITS/3 ML VIAL SUBQ SCH ×4 (08:48→22:47)
[2021-04-24] MEDS: Azithromycin 500 MG in 0.9 % Sodium Chloride 250 ML IVPB SCH (16:24)
[2021-04-24] MEDS: cefTRIAXone 1,000 MG in 0.9 % Sodium Chloride Mini Bag 100 ML IVPB SCH (16:25)
[2021-04-25] MEDS: *HR* HYDROcodone/Acet 5/325 mg TABLET PO PRN ×2 (00:47→10:46)
[2021-04-25] MEDS: Ipratropium/Albuterol Neb 3 ML IH SCH ×4 (03:57→16:06)
[2021-04-25] MEDS: cloNIDine HCL 0.1 MG TABLET PO SCH ×2 (04:04→07:49)
[2021-04-25] MEDS: *HR* Heparin 5,000 UNIT/ML VIAL SQ SCH (04:58)
[2021-04-25 05:45] LABS: Basophils # 0.1 K/mcL (0.0-0.2); Basophils % 0.5 %; Hematocrit 38.7 % (35.3-44.9); Hemoglobin 12.1 g/dL (11.5-15.4); Immature Granulocytes % 4.7 % (0-4); Lymphocytes # 1.8 K/mcL (0.6-4.6); Lymphocytes % 10.1 %; Mean Corpuscular HGB Conc 31.3 g/dL (31.6-35.5); Mean Corpuscular Hemoglobin 25.9 pg (28.0-33.3); Mean Corpuscular Volume 82.7 fL (83.0-100.0); Monocytes # 0.9 K/mcL (0.0-1.3); Monocytes % 4.7 %; Neutrophils # 14.4 K/mcL (1.6-8.9); Platelet Count 421 K/mcL (140-400); Red Blood Count 4.68 M/mcL (3.82-4.97); Red Cell Distribution Width 15.4 % (11.5-14.5)
[2021-04-25 06:02] LABS: BUN/Creatinine Ratio 35 (6-26); Blood Urea Nitrogen 30 mg/dL (8-23); Calcium 9.1 mg/dL (8.6-10.3); Carbon Dioxide 36 mEq/L (23-29); Chloride 95 mEq/L (98-107); Glucose 197 mg/dL (70-105); Osmolality,Calculated 294 (280-300); Potassium 3.6 mEq/L (3.5-5.1); Sodium 136 mEq/L (136-145); eGFR For African Americans > 60 (> 60); eGFR For Non-African Americans > 60 (> 60)
[2021-04-25] MEDS: Budesonide/Formoterol 160/4.5 1 PUFF INH IH SCH (07:38)
[2021-04-25] MEDS: Nicotine 21 MG PATCH.TD24 TD SCH (07:48)
[2021-04-25] MEDS: Aspirin Enteric Coated 81 MG Tablet PO SCH (07:49)
[2021-04-25] MEDS: Carbidopa/Levodopa 25/100 TABLET PO SCH ×2 (07:49→14:30)
[2021-04-25] MEDS: PARoxetine 20 MG TABLET PO SCH (07:49)
[2021-04-25] MEDS: carvediloL 25 MG TABLET PO SCH (07:49)
[2021-04-25] MEDS: Lisinopril-HCTZ 20-12.5mg TABLET PO SCH (07:50)
[2021-04-25] MEDS: Furosemide 20 MG TABLET PO SCH (07:50)
[2021-04-25] MEDS: Gabapentin 300 MG CAPSULE PO SCH (07:50)
[2021-04-25] MEDS: Gabapentin 100 MG CAPSULE PO SCH (07:50)
[2021-04-25] MEDS: Insulin LISPRO 300 UNITS/3 ML VIAL SUBQ SCH ×2 (07:50→12:00)
[2021-04-25] MEDS ORDERED: predniSONE 20 MG TABLET PO SCH (09:00)
[2021-04-25 11:49] VITALS: BP 159/90; PULSE 72; TEMP 97.3; O2SAT 93
[2021-04-25] MEDS: *HR* LORazepam 0.5 MG TABLET PO PRN (14:32)
== END 2021-04-25 16:25 | disposition home or self-care (01) | DRG 871 ==
LOC: 2NENU 23:33 → EMEROOARM 23:33 → SUATTDRO 04-22 03:05 → 2NENU 04-22 04:23
PROVIDERS: ADMIT Internal Medicine; ATTEND Family Medicine